=== PATIENT | female | born 1995 | race Caucasian/White ===

== ENCOUNTER → 2020-11-22 15:30 | Outpatient (CLI) | payer BC, SELFPAY ==
[2020-11-22 16:45] LABS: hCG Titer Quant., Serum 70 mIU/mL (1-3)
== END ==
PROVIDERS: Referring Provider Obstetrics & Gynecology; Visit Provider Obstetrics & Gynecology
DX: O20.0 Threatened abortion (principal); Z3A.00 Weeks of gestation of pregnancy not specified
CPT/HCPCS: 36415; 84702

== ENCOUNTER → 2020-11-25 11:26 | Outpatient (CLI) | payer BC, SELFPAY ==
[2020-11-25 12:52] LABS: hCG Titer Quant., Serum 297 mIU/mL (1-3)
== END ==
PROVIDERS: Referring Provider Obstetrics & Gynecology; Visit Provider Obstetrics & Gynecology
DX: Z34.90 Encounter for supervision of normal pregnancy, unspecified, unspecified trimester (principal)
CPT/HCPCS: 36415; 84702

== ENCOUNTER 2020-12-07 11:12 | Outpatient (CLI) | payer BC, SELFPAY ==
[2020-12-07 11:30] VITALS: BP 114/75; PULSE 81; RESP 16; TEMP 36.6; O2SAT 99
[2020-12-07] MEDS: Dextrose 5%-Lactated Ringers 1,000 ML 999 ML IV (11:50)
[2020-12-07] MEDS: Ondansetron 4 MG/2 ML Vial IV (11:58)
[2020-12-07 13:17] VITALS: BP 105/56; PULSE 77; RESP 16; O2SAT 100
== END 2020-12-07 16:00 | disposition home or self-care (01) ==
LOC: MEDOUTP 11:15
PROVIDERS: Referring Provider Obstetrics & Gynecology; Visit Provider Obstetrics & Gynecology
DX: E86.0 Dehydration (principal)
CPT/HCPCS: 96374; 96361; J2405

== ENCOUNTER 2020-12-12 12:50 | Outpatient (CLI) | payer BC, SELFPAY ==
[2020-12-12] MEDS: Dextrose 5%-Lactated Ringers 1,000 ML 999 ML IV (13:15)
[2020-12-12] MEDS: Ondansetron 4 MG/2 ML Vial IV (13:15)
[2020-12-12] MEDS: 0.9% NaCl Peripheral Flush Adult/Peds IV (13:24)
[2020-12-12 13:25] VITALS: BP 100/65; PULSE 65; RESP 16; TEMP 36.6; O2SAT 100; BMI 27.9
[2020-12-12 14:32] VITALS: BP 108/67; PULSE 67
== END 2020-12-12 15:00 | disposition home or self-care (01) ==
LOC: MEDOUTP 12:50
PROVIDERS: Referring Provider Nurse Practitioner Women's Health; Visit Provider Nurse Practitioner Women's Health
DX: E86.0 Dehydration (principal)
CPT/HCPCS: 96361; 96374; A4216; J2405

== ENCOUNTER → 2020-12-20 14:14 | Outpatient (CLI) | payer BC, SELFPAY ==
[2020-12-20 13:17] VITALS: BMI 28.2
[2020-12-20] MEDS: Dextrose 5%-Lactated Ringers 1,000 ML 999 ML IV (14:59)
[2020-12-20] MEDS: 0.9% NaCl Peripheral Flush Adult/Peds IV (15:02)
[2020-12-20] MEDS: Ondansetron 4 MG/2 ML Vial IV (15:06)
[2020-12-20 15:14] VITALS: BP 102/62; PULSE 72; RESP 16; TEMP 36.1; O2SAT 100; BMI 28.2
[2020-12-20 16:13] VITALS: BP 125/75; PULSE 76; RESP 16; TEMP 36.1; O2SAT 100
[2020-12-20 17:13] LABS: Amphetamine Urine VISTA NEGATIVE (<1000 ng/mL); Barbiturate Urine VISTA NEGATIVE (< 200 ng/mL); Benzodiazepine Urine VISTA NEGATIVE (< 200 ng/mL); Cocaine Urine VISTA NEGATIVE (< 300 ng/mL); Ecstacy Urine VISTA NEGATIVE (< 500 ng/mL); Methadone Urine VISTA NEGATIVE (< 300 ng/mL); PCP Urine VISTA NEGATIVE (< 25 ng/mL); THC Urine VISTA NEGATIVE (< 50 ng/mL); Vista UDS pH Range 6
[2020-12-24 16:07] LABS: Chlamydia By Nucleic Acid AMP Negative (Negative)
[2020-12-25 07:32] LABS: Gonococcus By Nucleic Acid AMP Negative (Negative)
[2020-12-25 16:45] LABS: HPV Reflexed? NOT INDICATED
== END ==
PROVIDERS: Referring Provider Obstetrics & Gynecology; Visit Provider Obstetrics & Gynecology
DX: O99.280 Endocrine, nutritional and metabolic diseases complicating pregnancy, unspecified trimester (principal); E86.0 Dehydration; Z3A.00 Weeks of gestation of pregnancy not specified
CPT/HCPCS: 96361; 96374; 80307; 87086; 87088; 87491; 87591; 88175; A4216; G0145; J2405

== ENCOUNTER → 2021-01-22 14:49 | Outpatient (CLI) | payer BC, SELFPAY ==
[2021-01-22 14:13] VITALS: BMI 27.1
[2021-01-22 15:18] LABS: Absolute Lymphocyte Count 1.72 X10^3/uL (0.83-4.51); Absolute Neutrophil Count 5.4 X10^3/uL (2.0-7.7); Basophil# 0.03 X10^3/uL; Basophil% 0.4 % (0-1); Eosinophils% 1.3 % (0-5); Hematocrit 36.1 % (37-47); Lymphocyte # 1.72 X10^3/ul (4.0); Lymphocyte % 21.9 % (19-41); Mean Corp Hgb Conc 33.2 g/dL (32-36); Mean Corpuscular Volume 93.3 fL (81-99); Mean Platelet Vol. 11.2 fl (6.2-12.0); Monocyte% 7.7 % (0-10); NRBC Flagged by Analyzer 0 % (0-5); Neutrophil # 5.38 X10^3/uL (2.7-7.7); Neutrophil % 68.6 % (47-70); Platelet Count 190 K/mm3 (150-450); RBC Distribution Width CV 12.7 % (11.6-14.6); RBC Distribution Width SD 43.1 fl (35.1-43.9); Red Blood Count 3.87 M/mm3 (4.2-5.4); White Blood Count 7.8 K/mm3 (4.4-11.0)
[2021-01-22 16:27] LABS: HIV - WCH Non-Reactive (Nonreactive); Hepatitis B Surface Antigen Non-Reactive (Nonreactive); Hepatitis C Antibody Non-Reactive (Nonreactive); Rubella IgG Reactive (Nonreactive); Syphilis Antibodies Non-reactive
== END ==
PROVIDERS: Referring Provider Obstetrics & Gynecology; Visit Provider Obstetrics & Gynecology
DX: Z34.80 Encounter for supervision of other normal pregnancy, unspecified trimester (principal)
CPT/HCPCS: 36415; 85025; 86703; 86762; 86780; 86803; 86850; 86900; 86901; 87340

== ENCOUNTER → 2021-02-08 13:19 | Outpatient (CLI) | payer BC, SELFPAY ==
[2021-01-22 14:13] VITALS: BMI 27.1
[2021-02-08 13:34] VITALS: BP 106/68; PULSE 89; RESP 16; TEMP 37.1; O2SAT 99; BMI 26.4
[2021-02-08] MEDS: 0.9% NaCl Peripheral Flush Adult/Peds IV (13:37)
[2021-02-08] MEDS: Dextrose 5%-Lactated Ringers 1,000 ML 999 ML IV (13:45)
[2021-02-08] MEDS: Ondansetron 4 MG/2 ML Vial IV (13:47)
[2021-02-08 15:02] VITALS: BP 112/67; PULSE 78; TEMP 36.8
== END ==
LOC: MEDOUTP 13:19
PROVIDERS: Referring Provider Obstetrics & Gynecology; Visit Provider Obstetrics & Gynecology
DX: E86.0 Dehydration (principal)
CPT/HCPCS: 96361; 96374; A4216; J2405

== ENCOUNTER → 2021-04-19 | Outpatient (CLI) | payer BC, SELFPAY ==
[2021-04-19 15:30] VITALS: BMI 26.4
== END | disposition home or self-care (01) ==
LOC: LABSPEC 16:39
PROVIDERS: Referring Provider Obstetrics & Gynecology; Visit Provider Obstetrics & Gynecology
DX: O26.899 Other specified pregnancy related conditions, unspecified trimester (principal); R10.2 Pelvic and perineal pain; Z3A.00 Weeks of gestation of pregnancy not specified
CPT/HCPCS: 87070; 87086; 87088; 87205

== ENCOUNTER 2021-05-01 18:18 | Emergency (ER) | payer BC, SELFPAY ==
[2021-05-01 17:52] VITALS: BMI 26.4
[2021-05-01 18:19] VITALS: BP 106/69; PULSE 114; RESP 16; TEMP 36.7; O2SAT 99; BMI 26.8
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
[2021-05-01] MEDS: 0.9% Normal Saline 1,000 ML 999 ML IV (19:22)
[2021-05-01] MEDS: Metoclopramide 10 MG/2 ML Vial 5 MG IV (19:23)
[2021-05-01 20:08] LABS: Anion Gap 9 (5-15); BUN 5 mg/dL (7-18); BUN/Creat Ratio 8.7 RATIO (10-20); Calcium,Total 8.6 mg/dL (8.5-10.1); Chloride 103 mmol/L (98-107); Creatinine, Serum 0.58 mg/dL (0.55-1.02); EST Glomerular Filtration Rate 136 mL/min (>60); Est Glom Filt Rate - Afr Amer 165 mL/min (>60); Estimated Creatinine Clearance 112.86 ml/min; Glucose 65 mg/dL (74-106); Potassium 3.6 mmol/L (3.5-5.1); Sodium Level 133 mmol/L (136-145)
[2021-05-01 20:33] VITALS: BP 101/79; PULSE 104; RESP 16; TEMP 37; O2SAT 100
--- NOTE | 2021-05-01 21:12 | CM.ED ---
SW Note Referral Source: Case Find Referral Reason: Patient reportedly has no Primary Care Physican (PCP) SW met with patient in her room. Patient said that she has a PCP, Darlin Antonio, in the [facility] area. Patient said that Darlin Antonio is through her employer, [employer]. Patient voiced no additional concerns or needs. SW remains available if needs arise. Plan: Patient has PCP and thus does not need resource list Marta CARLIN
[2021-05-01 21:17] VITALS: RESP 16
== END 2021-05-01 21:17 | disposition home or self-care (01) ==
PROVIDERS: Emergency Provider Emergency Medicine
DX: O98.512 Other viral diseases complicating pregnancy, second trimester (principal); U07.1 COVID-19; O21.0 Mild hyperemesis gravidarum; Z3A.27 27 weeks gestation of pregnancy
CPT/HCPCS: 80048; 96361; 96374; 99285

== ENCOUNTER 2021-05-06 12:33 | Outpatient (CLI) | payer BC, SELFPAY ==
[2021-05-06 12:47] VITALS: BP 108/74; PULSE 94
[2021-05-06 12:48] VITALS: BMI 26.6
[2021-05-06 13:05] LABS: Color, Urine Yellow (Yellow); Glucose, Dipstick Normal (Normal); Ketone-Dipstick 15 mg/dl (Negative); Leukocyte Esterase-Dipstick Negative /ul (Negative); Nitrite-Dipstick Negative (Negative); Occult Blood-Urine Negative /ul (Negative); Protein-Dipstick Negative (Negative); Specific Gravity, Urine 1.005 (1.002-1.030); Urine Bilirubin Dipstick Negative (Negative); Urine Clarity Clear (Clear); Urine Urobilinogen Normal (Normal)
[2021-05-06 13:07] VITALS: TEMP 36.6
[2021-05-06 13:25] LABS: ROM Internal Control Test YES-OK TO RESULT pt. (Internal QC); ROM Patient Test Negative (Negative)
[2021-05-06] MEDS: Lactated Ringers 2,000 ML 999 ML IV (14:00)
[2021-05-06] MEDS: Ondansetron 4 MG/2 ML Vial IV (14:09)
[2021-05-06] MEDS: cycloBENZAPRine HCl 10 MG Tablet PO (15:09)
--- NOTE | 2021-05-07 08:34 | OB.TRI.PN ---
Progress Notes Date of Service: 05/06/21 Progress Note: Patient presents for triage evaluation secondary to back pain and possible LOF. ROM negative. Cervix closed. Given 2L IVF given unable to tolerate PO and positive ketones. Given flexeril for musculoskeletal back pain FHT: Moderate variability reactive no decelerations category I tracing [place]: No Contractions Assessment and plan: Reactive NST, reassuring maternal and status patient discharged to home to follow-up at next scheduled visit. See problem list details for additional plan information. Laboratory Studies: Laboratory Tests 05/06/21 05/06/21 Range/Units 12:55 12:55 Urine Color Yellow (Yellow) Urine Clarity Clear (Clear) Urine pH 7.0 (5.0 - 8.0) Ur Specific [place] 1.005 (1.002-1.030) Urine Protein Negative (Negative) mg/dl Urine Glucose (UA) Normal (Normal) mg/dl Urine Ketones 15 H (Negative) mg/dl Urine Occult Blood Negative (Negative) /ul Urine Nitrite Negative (Negative) Urine Bilirubin Negative (Negative) mg/dL Urine Urobilinogen Normal (Normal) mg/dl Ur Leukocyte Esterase Negative (Negative) /ul Vag Amniotic Fld Detect Negative (Negative)
== END 2021-05-06 16:04 | disposition home or self-care (01) ==
LOC: WPOUT 12:36 → WP 12:38
PROVIDERS: Visit Provider Obstetrics & Gynecology
DX: O26.899 Other specified pregnancy related conditions, unspecified trimester (principal); M54.9 Dorsalgia, unspecified; Z3A.00 Weeks of gestation of pregnancy not specified
CPT/HCPCS: 96361 ×2; 96374; 59025; 59050; 81002; 84112; 87086; 87088; 99218; J7120; G0378; J2405

== ENCOUNTER 2021-05-14 13:06 | Outpatient (CLI) | payer BC, SELFPAY ==
[2021-05-14 13:36] VITALS: BP 103/65; PULSE 80; TEMP 36.3; O2SAT 99
[2021-05-14 13:43] VITALS: BP 103/65; PULSE 80; O2SAT 94
[2021-05-14 13:49] VITALS: BMI 23.3
[2021-05-14 14:30] VITALS: BP 101/64; PULSE 73
[2021-05-14 15:00] VITALS: BP 103/59; PULSE 81
[2021-05-14] MEDS: Acetaminophen 500 MG Tablet 1000 MG PO (15:01)
[2021-05-14 15:30] VITALS: BP 106/67; PULSE 90
[2021-05-14 16:00] VITALS: BP 103/64; PULSE 95
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
== END 2021-05-14 18:07 | disposition home or self-care (01) ==
LOC: WPOUT 13:13 → WP 13:14
PROVIDERS: Visit Provider Obstetrics & Gynecology
DX: O26.893 Other specified pregnancy related conditions, third trimester (principal); R51.9 Headache, unspecified; H53.8 Other visual disturbances; Z3A.28 28 weeks gestation of pregnancy; Z79.82 Long term (current) use of aspirin
CPT/HCPCS: 59025; 59050; 99218; G0378

== ENCOUNTER → 2021-05-21 18:12 | Outpatient (CLI) | payer BC, SELFPAY ==
[2021-05-16 11:22] VITALS: BMI 26.6
--- NOTE | 2021-05-21 18:17 | US_ITS ---
STUDY: SECOND AND THIRD TRIMESTER OBSTETRICAL ULTRASOUND - LIMITED REASON FOR EXAM: Female, 25 years old. Growth. History of colon. LMP: 10/25/2020 PRIOR ULTRASOUND: None. TECHNIQUE: Transabdominal TECHNICAL QUALITY: Adequate. FINDINGS: There is a single intrauterine fetus. The fetus is in a variable presentation. There is demonstrated cardiac activity with a heart rate of 137 bpm. There is decreased amniotic fluid volume consistent with oligohydramnios. The largest amniotic fluid pocket measures 2.86 cm. The amniotic fluid index (MOOKIE) is 7.8 cm. The placenta is fundal and posterior There are Grade 1 placental changes. The cervix measures 4.7 cm cm in length. BIOMETRY: BPD: 6.85 cm: 27 weeks, 3 days HC: 26.29 cm: 28 weeks, 4 days AC: 23.56 cm: 27 weeks, 6 days FL: 5.66 cm: 29 weeks, 5 days Age by LMP: 29 weeks, 5 days. DAVE by LMP: 08/01/2021. age by current US: 28 weeks, 1 days. DAVE by current US: 08/12/2021. Estimated weight: 12 4 grams, +/- 186 grams, 9 percentile. Gender: Indeterminant US/OB Limited With Biometrics IMPRESSION: 1. Live single intrauterine at 28 weeks, 1 day. DAVE is 08/12/2021. This is 11 days behind expected gestational age by LMP. 2. EFW of 1240 g. This is at the 9th percentile. 3. Oligohydramnios. The MOOKIE is 7.8 cm. 4. Fundal and posterior grade 1 placenta. 5. Variable presentation. Electronically Signed: Linden Mayfield DO at 22:13 EDT Tel [phone], Service support ,
== END ==
LOC: US 18:13
PROVIDERS: Visit Provider Obstetrics & Gynecology
DX: O98.513 Other viral diseases complicating pregnancy, third trimester (principal); U07.1 COVID-19; O41.03X0 Oligohydramnios, third trimester, not applicable or unspecified; Z3A.28 28 weeks gestation of pregnancy
CPT/HCPCS: 76816

== ENCOUNTER 2021-05-25 19:43 | Outpatient (CLI) | payer BC, SELFPAY ==
[2021-05-16 11:22] VITALS: BMI 26.6
[2021-05-25 19:49] VITALS: BMI 26.9
[2021-05-25 19:53] VITALS: BP 118/81; PULSE 93; PULSE 97; TEMP 36.6; O2SAT 99
[2021-05-25 20:58] LABS: ROM Internal Control Test YES-OK TO RESULT pt. (Internal QC); ROM Patient Test Negative (Negative)
--- NOTE | 2021-05-28 09:16 | OB.TRI.PN_ITS ---
Progress Notes Date of Service: 05/25/21 Progress Note: Patient presents for triage evaluation secondary to leakage of fluid. ROM negative. FHT: Moderate variability reactive no decelerations category I tracing [place]: No Contractions Assessment and plan: Reactive NST, reassuring maternal and status patient discharged to home to follow-up next scheduled visit. See problem list details for additional plan information. Laboratory Studies: Laboratory Tests 05/25/21 Range/Units 20:15 Vag Amniotic Fld Detect Negative (Negative) Charges/Coding Procedures Urinary/Genital 52xxx-59xxx: 94976-98 non-stress test Interp
== END 2021-05-25 21:30 | disposition home or self-care (01) ==
LOC: WPOUT 19:47 → WP 19:47
PROVIDERS: Visit Provider Obstetrics & Gynecology
DX: Z34.90 Encounter for supervision of normal pregnancy, unspecified, unspecified trimester (principal)
CPT/HCPCS: 59025; 59050; 84112; 99218; G0378

== ENCOUNTER → 2021-06-01 11:59 | Outpatient (CLI) | payer BC, SELFPAY ==
[2021-06-01 13:51] LABS: Vitamin D,25 Hydroxy 37.9 ng/mL
[2021-06-01 13:55] LABS: Thyroid Stim Hormone (TSH) 1.12 uIU/mL (0.358-3.74)
[2021-06-06 09:40] LABS: Zinc, Plasma or Serum 54 ug/dL (44-115)
== END ==
DX: O36.5931 Maternal care for other known or suspected poor fetal growth, third trimester, fetus 1 (principal); Z3A.00 Weeks of gestation of pregnancy not specified
CPT/HCPCS: 36415; 82306; 83036; 84443; 84630

== ENCOUNTER → 2021-06-06 | Outpatient (CLI) | payer BC, SELFPAY ==
[2021-06-06 12:16] LABS: ROM Internal Control Test YES-OK TO RESULT pt. (Internal QC); ROM Patient Test Negative (Negative)
== END | disposition home or self-care (01) ==
LOC: LABSPEC 12:03
PROVIDERS: Referring Provider Nurse Practitioner Women's Health; Visit Provider Nurse Practitioner Women's Health
DX: O26.899 Other specified pregnancy related conditions, unspecified trimester (principal); N89.8 Other specified noninflammatory disorders of vagina; Z3A.00 Weeks of gestation of pregnancy not specified
CPT/HCPCS: 84112

== ENCOUNTER → 2021-06-08 13:35 | Outpatient (CLI) | payer BC, SELFPAY ==
--- NOTE | 2021-06-08 13:38 | US_ITS ---
STUDY: OBSTETRICAL ULTRASOUND - BIOPHYSICAL PROFILE REASON FOR EXAM: Female, 25 years old decrease movement LMP: 10/25/2020. PRIOR ULTRASOUND: Comparison is made with prior study 05/21/2021. TECHNIQUE: Transabdominal TECHNICAL QUALITY: Adequate. FINDINGS: There is a single intrauterine fetus. The fetus is in a cephalic presentation. There is demonstrated cardiac activity with a heart rate of 147 bpm. There is a normal amniotic fluid volume. The largest amniotic fluid pocket measures 3.4 cm x 2.6 cm. The amniotic fluid index (MOOKIE) is 8.4 cm. This is within the lower limits of normal. The placenta is fundal in location. There are Grade 1 placental changes. Age by LMP: 32 weeks, 2 days. DAVE by LMP: 07/22/2021. age by prior US: 30 weeks, 5 days. DAVE by prior US: 08/12/2021. BIOPHYSICAL PROFILE: Breathing Movements (FBM): 2 Gross Body Movements (GBM): 2 Tone (FT): 2 Amniotic Fluid Volume (AFV): 2 TOTAL SCORE: / US/Biophysical Prof W/O Non Stres IMPRESSION: Normal biophysical profile of 05/20. Electronically Signed: Surinder Manzo MD at 15:13 EDT , Service support ,
== END ==
PROVIDERS: Referring Provider Obstetrics & Gynecology; Visit Provider Obstetrics & Gynecology
DX: O36.8190 Decreased fetal movements, unspecified trimester, not applicable or unspecified (principal); Z3A.00 Weeks of gestation of pregnancy not specified
CPT/HCPCS: 76819

== ENCOUNTER 2021-06-10 17:10 | Outpatient (CLI) | payer BC, SELFPAY ==
[2021-06-10 17:28] VITALS: BP 108/70; PULSE 78; TEMP 36.7; O2SAT 99
[2021-06-10 17:30] VITALS: BMI 26.9
--- NOTE | 2021-06-11 06:40 | OB.TRI.PN_ITS ---
Progress Notes Date of Service: 06/10/21 Progress Note: Patient presents for triage evaluation secondary to decreased movememnt FHT: 140 Moderate variability reactive no decelerations category I tracing [place]: no regular Contractions Assessment and plan: feeling FM now, Reactive NST, reassuring maternal and status patient discharged to home to follow-up as scheduled. See problem list details for additional plan information. Charges/Coding Procedures Urinary/Genital 52xxx-59xxx: 29441-47 non-stress test Interp Assessment & Plan (1) Decreased movements in third trimester: COMMENT: seen in triage 06/10 reactive NST
== END 2021-06-10 18:00 | disposition home or self-care (01) ==
LOC: WPOUT 17:26 → WP 17:26
PROVIDERS: Referring Provider Obstetrics & Gynecology; Visit Provider Obstetrics & Gynecology
DX: O36.8130 Decreased fetal movements, third trimester, not applicable or unspecified (principal); Z3A.00 Weeks of gestation of pregnancy not specified
CPT/HCPCS: 59025; 59050

== ENCOUNTER → 2021-06-14 11:33 | Outpatient (CLI) | payer BC, SELFPAY ==
--- NOTE | 2021-06-14 11:35 | US_ITS ---
EXAM: US BIOPHYSICAL PROFILE WITHOUT NON-STRESS TESTING : 1995 CLINICAL INDICATION: decreased movement TECHNIQUE: Real-time ultrasound of the maternal pelvis for biophysical profile evaluation with image documentation. This report was created using [employer] report [employer] technology. COMPARISON: None. FINDINGS: BREATHING MOVEMENTS: Present. Score 2/2. GROSS BODY MOVEMENTS: Present. Score 2/2. TONE: Present. Score 2/2. QUALITATIVE AMNIOTIC FLUID VOLUME: MOOKIE is 7.6 cm. The deepest vertical pocket is 3.1 cm. HEART RATE: heart rate is 148 bpm. PRESENTATION: There is an intrauterine gestation in cephalic position. PLACENTA: The placenta is posterior. CERVIX: Cervix measures 3.6 cm. OTHER FINDINGS: Biophysical profile is 8/8. US/Biophysical Prof W/O Non Stres IMPRESSION: Intrauterine gestation heart rate of 148 bpm. MOOKIE is at the lower limits of normal measuring 7.6 cm. Biophysical profile score was 8/8. at 1405 Reported and signed by: Gumaro Salas MD Electronically Signed: Gumaro Salas MD at 14:04 EDT Tel , Service support ,
== END ==
LOC: US 11:34
PROVIDERS: Referring Provider Obstetrics & Gynecology; Visit Provider Obstetrics & Gynecology
DX: O36.8130 Decreased fetal movements, third trimester, not applicable or unspecified (principal); Z3A.00 Weeks of gestation of pregnancy not specified
CPT/HCPCS: 76819

== ENCOUNTER → 2021-06-19 10:41 | Outpatient (CLI) | payer BC, SELFPAY ==
[2021-06-20 17:23] LABS: Anti-Nuclear Antibody Test Negative (.)
[2021-06-25 14:09] LABS: Dilute Russell Viper Venom 31.9 sec (0.0-47.0); Homocyst(e)ine 4.3 umol/L (0.0-14.5); PTT-Lupus Anticoagulant 32.1 sec (0.0-51.9); Protein C, Functional 104 % (73-180); dPT CONFIRMATION RATIO 1.23 Ratio (0.00-1.40)
[2021-06-25 16:42] LABS: Activated Protein C Resistance 2.9 ratio (2.2-3.5); Anti-Cardiolipin Ab, IgG, Qn < 9 GPL U/mL (0-14); Anti-Cardiolipin Ab, IgM, Qn 15 MPL U/mL (0-12); Antithrombin 3 Function 107 % (75-135); Beta-2-Glycoprotein I IgG <9 (0-20); Beta-2-Glycoprotein I IgM <9 (0-32); Interpretation Comment: (.); Protein S, Free 47 % (61-136)
== END ==
DX: O36.8931 Maternal care for other specified fetal problems, third trimester, fetus 1 (principal); Z3A.00 Weeks of gestation of pregnancy not specified
CPT/HCPCS: 36415; 81240; 81241; 83090; 85300; 85303; 85307; 85420; 85613; 85705; 85732; 86038

== ENCOUNTER 2021-06-26 12:00 | Outpatient (CLI) | payer BC, SELFPAY ==
[2021-06-26 12:38] VITALS: BP 109/79; PULSE 89
[2021-06-26 12:40] VITALS: BP 109/79; PULSE 89; TEMP 36.9; O2SAT 99
[2021-06-26 12:41] VITALS: BMI 26.8
--- NOTE | 2021-06-26 12:46 | US_ITS ---
STUDY: SECOND AND THIRD TRIMESTER OBSTETRICAL ULTRASOUND - LIMITED REASON FOR EXAM: Female, 25 years old MOOKIE LMP: 10/25/2020. PRIOR ULTRASOUND: Comparison is made with prior study dated 06/14/2021. TECHNIQUE: Transabdominal TECHNICAL QUALITY: Adequate. FINDINGS: There is a single intrauterine fetus. The fetus is in a cephalic presentation. There is demonstrated cardiac activity with a heart rate of 143 bpm. There is a normal amniotic fluid volume. The largest amniotic fluid pocket measures 4.5 cm. The amniotic fluid index (MOOKIE) is 6.81 cm. The placenta is posterior in location and is not low lying. There are Grade 1 placental changes. The cervix measures 3.6 cm in length. US/OB Limited (No Biometrics) IMPRESSION: Normal amniotic fluid. Electronically Signed: Surinder Manzo MD at 15:46 EDT , Service support ,
--- NOTE | 2021-07-02 07:54 | OB.TRI.PN ---
Progress Notes Date of Service: 06/28/21 Progress Note: eval in triage due to non ractive NST, reactive NST in triage and BPP 05/20 dc home PTL and FM precautions Assessment & Plan (1) Decreased movements in third trimester: COMMENT: chronic persistent- twice weekly BPPs, if persistent recommend 37 week delivery.
== END 2021-06-26 14:28 | disposition home or self-care (01) ==
LOC: WPOUT 12:04 → WP 12:05
PROVIDERS: Visit Provider Obstetrics & Gynecology
DX: O36.8130 Decreased fetal movements, third trimester, not applicable or unspecified (principal); Z3A.00 Weeks of gestation of pregnancy not specified
CPT/HCPCS: 59025; 59050; 76815; 99218; G0378

== ENCOUNTER 2021-06-28 14:35 | Outpatient (CLI) | payer BC, SELFPAY ==
[2021-06-28 14:51] VITALS: BMI 26.9
--- NOTE | 2021-06-28 14:56 | US_ITS ---
STUDY: OBSTETRICAL ULTRASOUND - BIOPHYSICAL PROFILE REASON FOR EXAM: Female, 25 years old. Decreased movement. LMP: 10/25/2020. PRIOR ULTRASOUND: 05/21/2021, 06/08/2021, 06/14/2021 and 06/26/2021 TECHNIQUE: Transabdominal TECHNICAL QUALITY: Adequate. FINDINGS: There is a single intrauterine fetus. The fetus is in a cephalic presentation. There is demonstrated cardiac activity with a heart rate of 138 bpm. There is a normal amniotic fluid volume. The largest amniotic fluid pocket measures 4.24 cm. The amniotic fluid index (MOOKIE) is 12.4 cm. The placenta is posterior in location and is not low lying. There are Grade 2 placental changes. Age by LMP: 35 weeks, 2 days. DAVE by LMP: 08/01/2021. age by initial US: 33 weeks, 5 days. DAVE by initial US: 08/12/2021. BIOPHYSICAL PROFILE: Breathing Movements (FBM): 2 Gross Body Movements (GBM): 2 Tone (FT): 2 Amniotic Fluid Volume (AFV): 2 TOTAL SCORE: 8 / 8 US/Biophysical Prof W/O Non Stres IMPRESSION: Normal biophysical profile of 8/8. Electronically Signed: Linden Mayfield DO at 17:01 EDT Tel [phone], Service support ,
[2021-06-28 14:58] VITALS: BP 107/71; PULSE 98
[2021-06-28] MEDS: Betamethasone/Betamethasone 30 MG/5 ML Vial 12 MG IM (15:13)
--- NOTE | 2021-06-28 16:54 | OB.TRI.PN ---
Progress Notes Date of Service: 06/28/21 Progress Note: bpp 05/20 reassuring dc home fu as scheduled decreased movement
== END 2021-06-28 17:15 | disposition home or self-care (01) ==
LOC: WPOUT 14:36 → WP 14:37
PROVIDERS: Visit Provider Obstetrics & Gynecology
DX: O36.8190 Decreased fetal movements, unspecified trimester, not applicable or unspecified (principal); Z3A.00 Weeks of gestation of pregnancy not specified
CPT/HCPCS: 59025; 59050; 76819; 96372; 99218; G0378; J0702

== ENCOUNTER 2021-06-29 14:40 | Outpatient (CLI) | payer BC, SELFPAY ==
[2021-06-29 14:51] VITALS: TEMP 36.4; BMI 27.5
[2021-06-29 14:52] VITALS: BP 120/76; PULSE 92
[2021-06-29] MEDS: Betamethasone/Betamethasone 30 MG/5 ML Vial 12 MG IM (15:19)
--- NOTE | 2021-07-02 10:00 | OB.TRI.PN ---
Progress Notes Date of Service: 06/29/21 Progress Note: Patient presents for triage evaluation secondary to second dose of celestone and NST FHT: Moderate variability reactive no decelerations category I tracing [place]: No Contractions Assessment and plan: Reactive NST, reassuring maternal and status patient discharged to home to follow-up at next scheduled visit. See problem list details for additional plan information. Charges/Coding Procedures Urinary/Genital 52xxx-59xxx: 06204-72 non-stress test Interp
== END 2021-06-29 16:00 | disposition home or self-care (01) ==
LOC: WPOUT 14:43 → WP 14:43
PROVIDERS: Visit Provider Obstetrics & Gynecology
DX: O36.8130 Decreased fetal movements, third trimester, not applicable or unspecified (principal); Z3A.35 35 weeks gestation of pregnancy
CPT/HCPCS: 59025; 59050; 96372; 99218; G0378; J0702

== ENCOUNTER 2021-06-30 13:25 | Outpatient (CLI) | payer BC, SELFPAY ==
[2021-06-30 13:47] VITALS: BP 117/80; PULSE 92; TEMP 36.2; O2SAT 99
[2021-06-30 13:51] VITALS: BMI 26.6
--- NOTE | 2021-07-02 09:56 | OB.TRI.PN ---
Progress Notes Date of Service: 06/30/21 Progress Note: Patient presents for triage evaluation secondary to decreased movement. Movement improved on arrival. FHT: Moderate variability reactive no decelerations category I tracing [place]: No Contractions Assessment and plan: Reactive NST, reassuring maternal and status patient discharged to home to follow-up at next scheduled visit. See problem list details for additional plan information. Charges/Coding Procedures Urinary/Genital 52xxx-59xxx: 61638-03 non-stress test Interp
== END 2021-06-30 14:16 | disposition home or self-care (01) ==
LOC: WPOUT 13:34 → WP 13:36
PROVIDERS: Visit Provider Obstetrics & Gynecology
DX: O36.8190 Decreased fetal movements, unspecified trimester, not applicable or unspecified (principal); Z3A.00 Weeks of gestation of pregnancy not specified
CPT/HCPCS: 59025; 59050; 99218; G0378

== ENCOUNTER → 2021-07-05 09:49 | Outpatient (CLI) | payer BC, SELFPAY ==
--- NOTE | 2021-07-05 09:52 | US_ITS ---
STUDY: OBSTETRICAL ULTRASOUND - BIOPHYSICAL PROFILE REASON FOR EXAM: Female, 25 years old weekly MOOKIE until delivery -- bpp twice weekly one at [facility] LMP: 10/25/2020. PRIOR ULTRASOUND: Comparison is made with prior study dated 06/28/2021. TECHNIQUE: Transabdominal TECHNICAL QUALITY: Adequate. FINDINGS: There is a single intrauterine fetus. The fetus is in a cephalic presentation. There is demonstrated cardiac activity with a heart rate of 152 bpm. There is a normal amniotic fluid volume. The largest amniotic fluid pocket measures 3.4 cm. The amniotic fluid index (MOOKIE) is 6.3 cm. The placenta is posterior in location and is not low lying. There are Grade 2 placental changes. Age by LMP: 36 weeks, 1 days. DAVE by LMP: 08/01/2021. BIOPHYSICAL PROFILE: Breathing Movements (FBM): 2 Gross Body Movements (GBM): 2 Tone (FT): 2 Amniotic Fluid Volume (AFV): 2 TOTAL SCORE: 8 / 8 US/Biophysical Prof W/O Non Stres IMPRESSION: Normal biophysical profile of 05/20. Electronically Signed: Surinder Manzo MD at 14:44 EDT , Service support ,
== END ==
PROVIDERS: Referring Provider Obstetrics & Gynecology; Visit Provider Obstetrics & Gynecology
DX: Z34.80 Encounter for supervision of other normal pregnancy, unspecified trimester (principal)
CPT/HCPCS: 76819; 87081

== ENCOUNTER → 2021-07-12 09:05 | Outpatient (CLI) | payer BC, SELFPAY ==
--- NOTE | 2021-07-12 09:09 | US_ITS ---
STUDY: OBSTETRICAL ULTRASOUND - BIOPHYSICAL PROFILE REASON FOR EXAM: Female, 25 years old non reactive stress test LMP: 10/25/2020. PRIOR ULTRASOUND: Comparison is made with prior study dated 07/05/2021. TECHNIQUE: Transabdominal TECHNICAL QUALITY: Adequate. FINDINGS: There is a single intrauterine fetus. The fetus is in a cephalic presentation. There is demonstrated cardiac activity with a heart rate of 141 bpm. There is decreased amniotic fluid consistent with oligohydramnios. The largest amniotic fluid pocket measures 1.6 cm. The amniotic fluid index (MOOKIE) is 4.2 cm. The placenta is posterior in location and is not low lying. There are Grade 2 placental changes. BIOPHYSICAL PROFILE: Breathing Movements (FBM): 2 Gross Body Movements (GBM): 2 Tone (FT): 2 Amniotic Fluid Volume (AFV): 0 TOTAL SCORE: / 8 US/Biophysical Prof W/O Non Stres IMPRESSION: biophysical profile of 03/20. Oligohydramnios. Nuchal cord was noted. The referring physician was notified. Electronically Signed: Surinder Manzo MD at 9:51 EDT , Service support ,
== END ==
PROVIDERS: Referring Provider Obstetrics & Gynecology; Visit Provider Obstetrics & Gynecology
DX: O36.8190 Decreased fetal movements, unspecified trimester, not applicable or unspecified (principal); Z3A.00 Weeks of gestation of pregnancy not specified
CPT/HCPCS: 76819

== ENCOUNTER 2021-07-12 09:50 | Inpatient (IN) | payer BC, SELFPAY ==
[2021-07-12] VITALS (20 sets, daily range): BP systolic 92–130; BP diastolic 54–82; PULSE 75–125; RESP 12–17; TEMP 36.2–36.9; O2SAT 97–100; BMI 26.6
[2021-07-12] MEDS: Lactated Ringers 1,000 ML 50 ML IV (10:45)
[2021-07-12] MEDS: Oxytocin 30 units/NS 500 ml 30 UNITS/500 ML IV.SOLN IV (11:00)
[2021-07-12 11:21] LABS: Absolute Lymphocyte Count 1.64 X10^3/uL (0.83-4.51); Absolute Neutrophil Count 7.8 X10^3/uL (2.0-7.7); Basophil# 0.05 X10^3/uL; Basophil% 0.5 % (0-1); Eosinophil# 0.07 X10^3/uL; Eosinophils% 0.7 % (0-5); Hematocrit 36.7 % (37-47); Hemoglobin 12.1 g/dL (12.0-15.0); Lymphocyte # 1.64 X10^3/ul (0.83-4.51); Mean Corpuscular Volume 94.1 fL (81-99); Mean Platelet Vol. 11.6 fl (6.2-12.0); Monocyte# 0.69 X10^3/uL; Monocyte% 6.7 % (0-10); NRBC Flagged by Analyzer 0 % (0-5); Neutrophil # 7.78 X10^3/uL (2.7-7.7); Neutrophil % 75.6 % (47-70); Platelet Count 207 K/mm3 (150-450); RBC Distribution Width CV 13.1 % (11.6-14.6); RBC Distribution Width SD 44.5 fl (35.1-43.9); White Blood Count 10.3 K/mm3 (4.4-11.0)
[2021-07-12] MEDS: 0.9% Normal Saline Single 100 ML IV.SOLN. INTRA-UTER (11:21)
[2021-07-12] MEDS: Ondansetron 4 MG/2 ML Vial IV ×2 (13:03→21:04)
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
[2021-07-12] MEDS: Lactated Ringers 500 ML 999 ML IV (20:38)
[2021-07-12] MEDS: Amnioinfusion- 0.9% NS 1,000 ML IV.SOLN. INTRA-UTER (21:07)
[2021-07-12] MEDS: Methylergonovine 0.2 MG/ML Ampul IM (21:46)
[2021-07-12] MEDS: Cefazolin 2 GM in 0.9% Normal Saline 100 ML IV (22:03)
--- NOTE | 2021-07-12 22:16 | RAD_ITS ---
STUDY: X-RAY - ABDOMEN/PELVIS REASON FOR EXAM: Female, 25 years old. Instrument count after stat c s TECHNIQUE: Portable, supine, AP abdomen/pelvis radiograph COMPARISON: None. FINDINGS: There is an unremarkable bowel gas pattern. There is no demonstrated free abdominal air. The visualized liver, spleen and kidneys are grossly normal in size and morphology. Normal soft tissue structures. No unexpected radiopaque foreign body. Normal visualized osseous structures. RAD/Abdomen Single View (Portable) IMPRESSION: No radiopaque foreign body. No acute abnormal finding. Electronically Signed: Santos Delgado MD at 23:13 EDT Tel , Service support ,
--- NOTE | 2021-07-12 22:18 | EX.PCM.OBRPT ---
Assessment & Plan (1) Oligohydramnios: COMMENT: 37 mookie 4 IOL (2) Decreased movements in third trimester: COMMENT: chronic persistent- twice weekly BPPs, if persistent recommend 37 week delivery. (3) Protein S deficiency: COMMENT: repeat PP (4) Antiphospholipid antibody positive: COMMENT: one value slightly elevated-needs repeat PP (5) MOOKIE (amniotic fluid index) borderline low: COMMENT: 06/11- 6.2cm; 06/21-8.6cm NL UA dopplers (6) : QUALIFIERS: Weeks of gestation: 36 weeks Qualified Code(s): Z3A.36 - 36 weeks gestation of COMMENT: declines genetic and carrier. ntd screening removed. anatomy reviewed. (7) Supervision of other normal : COMMENT: PRR DAVE:08/01/21 Girl! PC: Matheus Spouse: Samy (8) Echogenic intracardiac focus of fetus on ultrasound: COMMENT: Offered NIPT. Declines since isolated finding. (9) COVID-19: COMMENT: ASA daily, growth US starting at 32 wks (10) IUGR (intrauterine growth restriction): COMMENT: NL scan 06/04/21 previous 9%. (11) Cord prolapse: (12) delivery delivered: COMMENT: 37 IOL oligo girl [facility] stat cord prolapse Maternal Data Information DAVE Calculator Estimated Delivery Date Method Current WG Current Estimate 08/01/21 Ultrasound #1 37w 1d Other Estimates 07/14/21 LMP (Certain) 39w 5d Final DAVE Source: LMP Gestational age: 39 Details Operative Information Date of Procedure: 07/12/21 Pre-Operative Diagnosis: iol oligo, cord prolapse Post-Operative Diagnosis: same Indications for : Distress and Prolapsed Cord Procedure Type: low transverse cylinder tester #1: essie Type of Anesthesia: General Special Medications: none Drain: Johnson to straight drain Estimated Blood Loss: 600 Fluids Replaced: crystalloid Findings Description of Procedure: The patient was placed in the dorsal supine position with leftward tilt. Patient was prepped and draped in the normal sterile fashion. Pfannenstiel skin incision was made with the scalpel and carried through to the underlying layer of fascia with the scalpel. Fascia was nicked in the midline and the incision extended laterally. The rectus bellies were dissected off superiorly and inferiorly with out complication both sharply and bluntly. The peritoneum was entered digitally. The incision was stretched and a low transverse uterine incision was made with the scalpel. The infant's head was delivered atraumatically followed by the anterior and posterior shoulders without complication the rest of the delivered. The cord was clamped and cut and the was handed off to awaiting nurse. The placenta was delivered spontaneously immediately following and was noted to be intact and have a three-vessel cord. The uterus was exteriorized cleared of all clots and debris, and the incision was closed in a double layer closure using #1 Monocryl. The ovaries and fallopian tubes were noted to be within normal limits. The uterus was returned to the maternal abdomen and gutters were cleared of all clots and debris. The peritoneum was closed with 3-0 Monocryl in a running fashion. Gloves were changed prior to fascial closure. Fascia was closed with 0 PDS in a running fashion. Subcutaneous tissue was copiously irrigated and the skin was closed with 3-0 Monocryl in a subcuticular fashion. Mepilex dressing was applied without complication. Patient was taken to recovery in stable condition. It was discussed with the patient that based on the clinical information obtained during this encounter, combined with her history, at this time I would recommend vaginal or for future deliveries if further pregnancies are desired. Presentation: Positive for Vertex Amniotic Membrane Rupture Type: Spontaneous Amniotic Fluid Description: Clear Placental Delivery Description: Spontaneous Placenta Disposition: [facility] Cord Vessel Description: 3 Vessels Cord Entanglement: None Cord Gases: ABG and VBG A Gender: Female Delayed Cord Clamping: Yes Complications Risks of Surgery Discussed w/Patient: Bleeding, Infection and Injury to surrounding structure(s) including bowel and bladder Complications: none Admit VTE Documentation VTE Present on Admission: No VTE Mechan Device Prophylaxis: SCD's Procedures Urinary/Genital [id number]: [id number] Delivery [facility]
--- NOTE | 2021-07-12 22:22 | PCM.DC ---
Discharge Instructions Diet Discharge Diet: No restrictions Activity Discharge Activity: May Not Drive (for 2 weeks or while taking narcotic pain medications.), May Shower and May Take a Tub Bath (in 7 days) May shower in (days): 0 May resume sexual activity in: 4-6 weeks Weight Bearing Status: Full weight bearing Lifting Restrictions: 20 pounds Dressing / Incision Call your doctor if your incision/area has: Continuous Slow Oozing, Sudden Increased Bleeding, Increased Pain/ Swelling, Increased Redness and Foul Smelling Discharge Call your doctor if you observe: Fever of 101 or Higher and Using more than 1 pad per hour (for 2 hours) Suture Line Care: Avoid Pulling/Pushing and Avoid Pinching/Bending Cleanse incision/area with: Soap & Water and Keep Dressing Clean & Dry Follow Up Care Please Follow Up With: Gayathri Mckinnon MD When: Call [phone] to make an appointment for an incision check in 1-2 weeks. Test Results: Test results from this visit will be discussed in further detail at your follow-up appointment, if applicable. Discharge Plan Admission Admit Date/Time: 07/12/21 09:50 Primary Reason for Your Visit: section Attending Provider: Monik Timmons Primary Care Provider: Care Physician,Genevieve Primary Discharge Orders/Prescriptions Prescriptions: New oxycodone-acetaminophen [Endocet] 5-325 mg tablet 1 tab PO Q4H PRN (Reason: pain) 7 Days Qty: 20 RF: 0 ibuprofen [ibuprofen] 600 MG tablet 600 mg PO Q6H PRN PRN (Reason: pain) Qty: 30 RF: 0 Continued aspirin 81 mg Tablet,Chewable 162 mg PO DAILY RF: 0 Prenatabs FA 29-1 mg Tablet 1 tab PO DAILY RF: 0 Referrals / Follow Up: Care PhysicianGenevieve Primary [Primary Care Provider] - Disposition Disposition (needs filled in before D/C Order can be placed): Home, Self Care
[2021-07-12] MEDS: Oxytocin 30 units/NS 500 ml 30 UNITS/500 ML IV.SOLN 167 UNITS IV (23:23)
[2021-07-12] MEDS: Ketorolac 30 MG/ML Syringe IV (23:35)
[2021-07-12] MEDS: Acetaminophen 500 MG Tablet 1000 MG PO (23:36)
[2021-07-13] VITALS (12 sets, daily range): BP systolic 93–130; BP diastolic 54–80; PULSE 70–85; RESP 11–16; TEMP 36.3–37; O2SAT 95–99
[2021-07-13] MEDS: HYDROmorphone 1 MG/ML Syringe IV ×2 (01:50→09:32)
[2021-07-13] MEDS: Lactated Ringers 1,000 ML 100 ML IV (02:26)
[2021-07-13 05:03] LABS: Hemoglobin 9.8 g/dL (12.0-15.0); Mean Corp Hgb Conc 32.7 g/dL (32-36); Mean Corpuscular Hgb 30.7 pg (27.0-32.0); Mean Platelet Vol. 11.1 fl (6.2-12.0); Platelet Count 190 K/mm3 (150-450); RBC Distribution Width CV 12.9 % (11.6-14.6); Red Blood Count 3.19 M/mm3 (4.2-5.4)
[2021-07-13] MEDS: Ketorolac 30 MG/ML Syringe IV ×3 (05:17→17:59)
[2021-07-13] MEDS: Acetaminophen 500 MG Tablet 1000 MG PO ×4 (05:17→23:40)
--- NOTE | 2021-07-13 08:52 | PCM.PN.OB ---
Subjective Subjective Patient doing well without complaints. Tolerating PO. Ambulating and voiding without difficulty. Breast feeding well. Denies chest pain, shortness of breath, calf pain/swelling, fevers, chills, lightheadedness. Objective Data Objective Data Vital Signs: Vital Signs Temp Pulse Resp BP Pulse Ox 97.3 F L 75 12 99/57 L 95 07/13/21 06:35 07/13/21 06:35 07/13/21 06:35 07/13/21 06:35 07/13/21 02:43 Oxygen Delivery Method Room Air Weight: 141 lb 1.533 oz Body Mass Index (BMI) 26.6 Intake & Output: Intake and Output for Last 24 Hours 07/11/21 07/12/21 07/13/21 23:59 23:59 23:59 Intake Total 1526.30 / 1526.30 500 / 500 Output Total 75 / 75 1400 / 1400 Balance 1451.30 / 1451.30 -900 / -900 Lab / Micro Data Result Diagrams: 07/13/21 04:50 Labs: Laboratory Results - last 24 hr 07/12/21 10:45: WBC 10.3, RBC 3.90 L, Hgb 12.1, Hct 36.7 L, MCV 94.1, MCH 31.0, MCHC 33.0, RDW Std Deviation 44.5 H, RDW Coeff of Can 13.1, Plt Count 207, MPV 11.6, Immature Gran % (Auto) 0.500, Neut % (Auto) 75.6 H, Lymph % (Auto) 16.0 L, [place] % (Auto) 6.7, Eos % (Auto) 0.7, Baso % (Auto) 0.5, Absolute Neuts (auto) 7.8 H, Absolute Lymphs (auto) 1.64, Nucleated RBC % 0 07/12/21 10:45: Blood Type A POSITIVE, Antibody Screen NEGATIVE 07/13/21 04:50: WBC 15.0 H, RBC 3.19 L, Hgb 9.8 L, Hct 30.0 L, MCV 94.0, MCH 30.7, MCHC 32.7, RDW Std Deviation 44.0 H, RDW Coeff of Can 12.9, Plt Count 190, MPV 11.1 Micro: Microbiology 07/12/21 13:10 Nasal Secretion SARS-CoV-2 Antigen (Rapid) - Final Radiography Diagnostic Testing: Radiology Impression KUB X-Ray 07/12/21 22:16 IMPRESSION: No radiopaque foreign body. No acute abnormal finding. Electronically Signed: Santos Delgado MD at 23:13 EDT Tel , Service support , ROS Constitutional Constitutional: Denies fever(s) Cardiovascular Cardiovascular: Denies chest pain, dyspnea or lightheadedness Gastrointestinal Gastrointestinal: Reports abdominal pain; Denies constipation or diarrhea Neurologic Neurologic: Denies dizziness or headache(s) Physical Exam Const alert, oriented x3, no apparent distress, average body habitus, healthy appearing and well nourished HEENT normocephalic Head and Scalp: atraumatic Eyes PERRL and EOMs intact bilaterally Neck full ROM Lymph Lymphatic: no lymphadenopathy noted Resp normal respiratory effort, no retractions and no use of accessory muscles Cardio regular rate GI soft to palpation, non-tender and non-distended Inspection: incision intact and other (dressing in place) Palpation: other Other Details: fundus firm Extremity normal to inspection and no clubbing, cyanosis or edema Skin no rashes or lesions noted Neuro no focal motor deficits and no sensory deficits noted Psych mental status grossly normal, affect normal and speech normal Assessment & Plan (1) delivery delivered: COMMENT: 37 IOL oligo girl Roberta M[facility]OCHO LTCS stat cord prolapse PLAN: s/p LTCS PPD # 1 1. routine post care 2. breast feeding- support given 3. rh positive 4. rubella immune
[2021-07-13] MEDS: 0.9% Saline Lock 10 ML Syringe IV ×3 (09:33→17:59)
[2021-07-13] MEDS: Senna/Docusate Sodium 1 Tablet PO (12:11)
[2021-07-13] MEDS: oxyCODONE 5 MG Tablet PO (14:14)
[2021-07-13] MEDS: Naproxen 500 MG Tablet PO (23:40)
[2021-07-14 02:36] VITALS: BP 91/48; PULSE 64; RESP 16; TEMP 36.9
[2021-07-14] MEDS: Acetaminophen 500 MG Tablet 1000 MG PO (06:01)
[2021-07-14] MEDS: Naproxen 500 MG Tablet PO (07:45)
[2021-07-14 07:47] VITALS: BP 100/64; PULSE 69; RESP 16; TEMP 36.3
--- NOTE | 2021-07-14 09:20 | PCM.PN.OB ---
Subjective Subjective Patient doing well without complaints. Tolerating PO. Ambulating and voiding without difficulty. Breast feeding well. Denies chest pain, shortness of breath, calf pain/swelling, fevers, chills, lightheadedness. Objective Data Objective Data Vital Signs: Vital Signs Temp Pulse Resp BP Pulse Ox 97.3 F L 69 16 100/64 99 07/14/21 07:47 07/14/21 07:47 07/14/21 07:47 07/14/21 07:47 07/13/21 16:00 Oxygen Delivery Method Room Air Weight: 141 lb 1.533 oz Body Mass Index (BMI) 26.6 Intake & Output: Intake and Output for Last 24 Hours 07/12/21 07/13/21 07/14/21 23:59 23:59 23:59 Intake Total 1526.30 / 1526.30 1206.67 / 1206.67 Output Total 75 / 75 1400 / 1400 Balance 1451.30 / 1451.30 -193.33 / -193.33 Lab / Micro Data Result Diagrams: 07/13/21 04:50 Micro: Microbiology 07/12/21 13:10 Nasal Secretion SARS-CoV-2 Antigen (Rapid) - Final ROS Constitutional Constitutional: Denies fever(s) Cardiovascular Cardiovascular: Denies chest pain, dyspnea or lightheadedness Gastrointestinal Gastrointestinal: Reports abdominal pain; Denies constipation or diarrhea Neurologic Neurologic: Denies dizziness or headache(s) Physical Exam Const alert, oriented x3, no apparent distress, average body habitus, healthy appearing and well nourished HEENT normocephalic Head and Scalp: atraumatic Eyes PERRL and EOMs intact bilaterally Neck full ROM Lymph Lymphatic: no lymphadenopathy noted Resp normal respiratory effort, no retractions and no use of accessory muscles Cardio regular rate GI soft to palpation, non-tender and non-distended Inspection: incision intact and other (dressing in place) Palpation: other Other Details: fundus firm Extremity normal to inspection and no clubbing, cyanosis or edema Skin no rashes or lesions noted Neuro no focal motor deficits and no sensory deficits noted Psych mental status grossly normal, affect normal and speech normal Assessment & Plan (1) delivery delivered: COMMENT: 37 IOL oligo girl Roberta MOROCHO LTCS stat cord prolapse PLAN: s/p LTCS PPD # 2 1. routine post care 2. breast feeding- support given 3. rh positive 4. rubella immune
[2021-07-14] MEDS: Senna/Docusate Sodium 1 Tablet PO (09:53)
--- NOTE | 2021-07-14 15:54 | CM.ED ---
Addendum entered by Marta Middleton 07/14/21 19:14: SW provided patient with resources on Post Depression that included 10 Facts about Depression and Anxiety, [facility], [facility] Moms of , Depression checklist, Safe to sleep paperwork, PPSupport warm line, PPD on line resources, and Counseling agencies in [facility]. Marta CARLIN Original Note: BARBARA Note: Referral Source: BARBARA WP Referral Reason: History of Post Depression BARBARA called Josephine grinding mill operator. She said that patient wants to be discharged NATHAN as she wants to go to [facility] to see . SW stated that this life underwriter will be over shortly. SW reviewed chart and patient scored 0 on PHQ-2. Patient gave permission to speak to her in the presence of her sister. Patient reports that the FOB is at [facility] and that the nb has slow blood flow to the brain. Mom: Eleonora PNC: Dr. Tran and Dr. Oral Macias at [facility] 08/02/21 37 weeks Control: Tubal Ligation Baby: Roberta Barbosa 07/12/21 Apgars 7/9 Weight 4# 9 ounes Personal Financial Counselor: Dr. Oneyda Barajas Breast and Bottle Feeding MOB Other Children Matheus- Will be 2 1/2 next month Housing: Patient, FOB, [place] and will reside in patient's home in [place] [facility]. Transportation: Patient reports she has access to car and can drive. Patient said that today her sister, will drive her to [facility] to see the NB. Supplies: Patient reports she has access to crib, bassinets, carseat, clothes and diapers. Supportive: Patient said that her is her primary support. Patient said that her sister is helping her in the room currently and another sister is waiting in the parking lot. Patient said that all of her family is supportive and live like 7 minutes away. Patient said that a friend took care of her dogs today and another friend helped her yesterday and stated her friends have been very helpful. Patient said that the FOB's family lives by the [facility] and have offered assistance also. 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 No learning issues or delays. Employment: Patient said that she has been on disability for 8months due to hyperemesis. Patient was working at [employer] ([employer]). Patient said that she plans to continue to get disability until she graduates from college with her LMT. Agency Involvement: Patient reports no JFS services, no WIC, no HMG, no legal or CSB services. Patient has been going to [facility] for 5 months. Patient said that she really enjoys working with her therapist. Patient said that she plans to go back to counseling and will definetly go after I graduate. Patient does not currently have an appointment scheduled with her therapist. Patient was open to [facility] referral. FOB: Samy Sargent (not present) Time Together: Since 2017 Involved at : Patient said yes. Patient said FOB is currently at [facility] with the nb. Employment: [employer]. Patient said that FOB will be taking more time off than he expected but was unsure how much he planned to take off due to the current situation. FOB Mental Health, AOD, Domestic Violence: None Maternal MH History: Patient reports no current SI/HI. Patient said that after her daughter's she felt post depression and it was hard to admit as I was supposed to be happy. Patient said that this baby feels different and I am not afraid to tell anyone anymore. Patient said that early on with post depression she felt SI. Patient went to the MD and got Zoloft but I didn't feel it was working and switched to another antidepressant (name unknown). Patient said that she had been off antidepressants for 2-3 months before she became . Patient reports no drug or prescription drug use. Patient's chart noted no smoking. Patient reports no drinking alcohol while and she drinks not even 2 drinks when she is not pregant. Patient was bright and reactive. No tearfulness or anxiety noted. Patient smiled throughout the interview. Patient reports history of medication for PPD and counseling services. Patient plans to resume counseling definitely after I graduate in September. Patient denied current SI/HI. Patient voiced that when she had PPD in the past she was afraid to tell but she feels that with this baby I will tell. SW also encouraged patient to follow up with the SW at [facility]. SW also open to referral to [facility]. SW made referral to [facility] Plan: ANNALISA at [facility]. Patient discharged Marta CARLIN
--- NOTE | 2021-07-16 16:52 | CM.ED ---
BARBARA Note BARBARA called [facility] BARBARA Leona Silva [phone] and left message updating her that patient had period of post depression with SI on previous . Advised patient was on psych meds for post depression but also is linked with [facility] for outpatient therapy. BARBARA advised patient denied SI/HI. BARBARA wanted to keep patient's social work instructor updated due to possible stress that patient may be experiencing. Plan: Updated NICU BARBARA MCDANIEL
== END 2021-07-14 11:15 | disposition home or self-care (01) | DRG 787 ==
PROVIDERS: Admitting Provider Obstetrics & Gynecology; Referring Provider Obstetrics & Gynecology; Visit Provider Obstetrics & Gynecology
DX: O41.03X0 Oligohydramnios, third trimester, not applicable or unspecified (principal); O99.113 Other diseases of the blood and blood-forming organs and certain disorders involving the immune mechanism complicating pregnancy, third trimester; D68.61 Antiphospholipid syndrome; O77.9 Labor and delivery complicated by fetal stress, unspecified; O69.0XX0 Labor and delivery complicated by prolapse of cord, not applicable or unspecified; O36.5930 Maternal care for other known or suspected poor fetal growth, third trimester, not applicable or unspecified; Z20.822 Contact with and (suspected) exposure to COVID-19; O36.8130 Decreased fetal movements, third trimester, not applicable or unspecified; Z79.82 Long term (current) use of aspirin; Z3A.37 37 weeks gestation of pregnancy; Z37.0 Single live birth
CPT/HCPCS: 59025; 59050; 74018; 85025; 85027; 86850; 86900; 86901; 87426; 99218; 99251; J7030; J7120; A4216; G0378; G0463; J2405

== ENCOUNTER → 2021-07-31 11:02 | Outpatient (CLI) | payer BC, SELFPAY ==
[2021-07-31 11:13] LABS: Absolute Lymphocyte Count 2.08 X10^3/uL (0.83-4.51); Absolute Neutrophil Count 3.3 X10^3/uL (2.0-7.7); Basophil# 0.08 X10^3/uL; Basophil% 1.3 % (0-1); Eosinophil# 0.19 X10^3/uL; Hematocrit 35.4 % (37-47); Hemoglobin 11.3 g/dL (12.0-15.0); Lymphocyte # 2.08 X10^3/ul (0.83-4.51); Lymphocyte % 33.3 % (19-41); Mean Corp Hgb Conc 31.9 g/dL (32-36); Mean Platelet Vol. 10.1 fl (6.2-12.0); Monocyte# 0.55 X10^3/uL; Monocyte% 8.8 % (0-10); NRBC Flagged by Analyzer 0 % (0-5); Neutrophil # 3.32 X10^3/uL (2.7-7.7); Neutrophil % 53.3 % (47-70); Platelet Count 321 K/mm3 (150-450); RBC Distribution Width CV 13.1 % (11.6-14.6); RBC Distribution Width SD 46.8 fl (35.1-43.9); Red Blood Count 3.65 M/mm3 (4.2-5.4); White Blood Count 6.2 K/mm3 (4.4-11.0)
[2021-07-31 11:42] LABS: AST(SGOT) 18 U/L (15-37); Alanine Aminotransfer ALT/SGPT 19 U/L (13-56); Albumin, Serum 3.5 g/dL (3.2-5.0); Alkaline Phosphatase 67 U/L (45-117); Anion Gap 8 (5-15); BUN 10 mg/dL (7-18); BUN/Creat Ratio 14.2 RATIO (10-20); Calcium,Total 8.8 mg/dL (8.5-10.1); Chloride 105 mmol/L (98-107); EST Glomerular Filtration Rate 108 mL/min (>60); Est Glom Filt Rate - Afr Amer 131 mL/min (>60); Globulin 3.6 g/dL (2.2-4.2); Glucose 63 mg/dL (74-106); Protein, Total 7.1 g/dL (6.4-8.2); Sodium Level 141 mmol/L (136-145)
== END ==
PROVIDERS: Referring Provider Nurse Practitioner Women's Health; Visit Provider Nurse Practitioner Women's Health
DX: L29.9 Pruritus, unspecified (principal); R42 Dizziness and giddiness
CPT/HCPCS: 36415; 80053; 84550; 85025

== ENCOUNTER → 2021-08-27 15:04 | Outpatient (CLI) | payer BC, SELFPAY ==
[2021-08-30 18:07] LABS: Dilute Russell Viper Venom 35.5 sec (0.0-47.0); PTT-LA 35.5 sec (0.0-51.9); Protein S, Free 65 % (61-136); Thrombin Time 21.2 sec (0.0-23.0)
[2021-08-31 09:38] LABS: Protein S, Funtional 41 % (63-140); Protein S, Total 69 % (60-150)
[2021-08-31 09:39] LABS: Anti-Cardiolipin Ab, IgA, Qn < 9 APL U/mL (0-11); Anti-Cardiolipin Ab, IgG, Qn < 9 GPL U/mL (0-14); Anti-Cardiolipin Ab, IgM, Qn < 9 MPL U/mL (0-12); Beta-2-Glycoprotein I IgA <9 (0-25); Beta-2-Glycoprotein I IgG <9 (0-20); Beta-2-Glycoprotein I IgM <9 (0-32); Dilute Prothrombin Time (dPT) 38.2 sec (0.0-47.6); Interpretation Comment: (.); dPT Confirm Ratio 1.33 Ratio (0.00-1.34)
== END ==
PROVIDERS: Referring Provider Nurse Practitioner Women's Health; Visit Provider Nurse Practitioner Women's Health
DX: N96 Recurrent pregnancy loss (principal); D68.59 Other primary thrombophilia
CPT/HCPCS: 36415; 85305; 85306; 86146; 86147

== ENCOUNTER → 2023-02-04 | Outpatient (CLI) | payer BC, SELFPAY ==
[2023-02-04 18:30] LABS: Chlamydia Trachomatis by PCR Negative (Negative); Neisserai gonorrhoeae by PCR Negative (Negative); Probe Check PASS; Sample Adequacy Control PASS; Specimen Processing Control PASS
== END | disposition home or self-care (01) ==
LOC: LABSPEC 11:27
PROVIDERS: Referring Provider Nurse Practitioner Women's Health; Visit Provider Nurse Practitioner Women's Health
DX: Z11.3 Encounter for screening for infections with a predominantly sexual mode of transmission (principal)
CPT/HCPCS: 87491; 87591